=== PATIENT | female | born 1975 | race Caucasian/White ===

== ENCOUNTER 2021-02-21 11:08 | Emergency (ER) | payer OTHER ==
[~2021-02-21] VITALS: Ht 175.3 cm; Wt 61.2 kg
[~2021-02-21 11:08] MED LIST: PREDNISONE20 MG PO; PROVENTIL HFA6.7 GM INH; ROBAXIN-750750 MG PO; ZITHROMAX250 MG PO
--- OUTSIDE RECORDS SUMMARY | 2021-02-21 11:20 | XMS ---
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 Fadumo VISIT COUNT (12 MO.) 1 LISA Goins TOTAL 1 NOTE: Visits indicate total known visits. ED/UCC VISIT TRACKING (12 MO.) 02/21/2021 11:09 [facility] [place] TYPE: Emergency COMPLAINT: - BLOOD IN URINE INPATIENT VISIT TRACKING (12 MO.) No inpatient visits to display in this time frame [id number]
[2021-02-21] MEDS ORDERED: MELOXICAM7.5 MG PO (15:09)
[2021-02-21] MEDS ORDERED: CIPRO500 MG PO (15:09)
== END 2021-02-21 15:22 | disposition home or self-care (01) ==
LOC: ED 11:08
DX: N39.0 Urinary tract infection, site not specified (principal); J44.9 Chronic obstructive pulmonary disease, unspecified; F17.200 Nicotine dependence, unspecified, uncomplicated; Z88.0 Allergy status to penicillin
CPT/HCPCS: 74176; 80053; 81001; 85025; 96365; 99284-25; J0744; J1885; J7030

== ENCOUNTER 2022-05-02 17:22 | Inpatient (IN) | payer OTHER ==
[~2022-05-02] VITALS: Ht 165.1 cm; Wt 52.0 kg
[~2022-05-02 17:22] MED LIST changes: +CIPRO500 MG PO; +MELOXICAM7.5 MG PO
--- OUTSIDE RECORDS SUMMARY | 2022-05-02 17:28 | XMS ---
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 Fadumo VISIT COUNT (12 MO.) Danny Goins TOTAL 1 NOTE: Visits indicate total known visits. ED/UCC VISIT TRACKING (12 MO.) 05/02/2022 17:22 [facility] [place] TYPE: Emergency COMPLAINT: - DIFFUCULTY BREATHING INPATIENT VISIT TRACKING (12 MO.) No inpatient visits to display in this time frame [id number]
--- NOTE | 2022-05-02 23:00 | NUR ---
REPORT RECIEVED FROM CASEY GUZMÁN. PATIENT ARRIVED TO UNIT VIA STRETCHER TO ICU. TRANSFERED TO HOSPITAL BED. PATIENT ON PROPOFOL AT 30MCG/KG/MIN, VERSED AT 15MG/HR, AND NS AT 150MLS/HR. LINDA WITH RT TO TRANSFER PATIENT FROM PROTABLE VENT. PATIENTS VS STABLE. PATIENT REACHING BUE UP. SOFT RESTRAINTS IN PLACE FOR SAFETY. SKIN IS WARM AND DRY. BILATERAL KNEE AND RIGHT FOOT ABRASIONS. LUNGS SOUNDS ARE CLEAR TO DIMINISHED IN THE BASES. HR TACHY IN THE LOW 100'S. OG TO LIS. ETT 23@ TEETH. VENT AC/VC. FRAZIER IN PLACE DRAINING CLOUDY URINE.
--- NOTE | 2022-05-03 01:21 | NUR ---
RT AT BEDSIDE FOR TREATMENT. PATIENT RESTING COMFORTABLY IN BED. GRIMACES WITH ORAL CARE. RESPONDS TO PAINFUL STIMULI. GAG REFLUX PRESENT. RESTRAINTS IN PLACE TO BUE; EXTREMITIES WARM, PINK, AND CAP REFILL < 3 SECS. PATIENT REPOSITIONED AND ORAL CARE COMPLETED.
--- NOTE | 2022-05-03 03:17 | NUR ---
PATIENT RESTING IN BED. RESTRAINTS REMAIN IN PLACE. RESPONDS TO STIMULI. PATIENT TURNED AND ORAL CARE COMPLETED.
--- NOTE | 2022-05-03 05:24 | NUR ---
PATIENT REPOSITIONED IN BED. ORAL CARE COMPLETED. LINEN CHANGED. PATIENT RESPONDS TO STIMULI. GRIMACES AND MOVES EXTREMITIES WITH CARES. VS STABLE.
--- NOTE | 2022-05-03 08:26 | NUR ---
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 VERSED REDUCED X 2, OFF AT 0800. PATIENT REMAINS ON PROPOFOL, BUT BEGINNING TO TITRATE DOWN FOR SAT/SBT. PATIENT CURRENTLY BREATHING OVER VENT WITH CURRENT SETTINGS. PATIENT DOES CURRENTLY RESPOND TO VERBAL AND PHYSICAL STIMULI WITH FACIAL GRIMACE AND/OR BODY MOVEMENT, NOT ABLE TO FOLLOW COMMANDS AT THIS TIME. WILL CONTINUE TO REDUCE PROPOFOL IN PREPARATION FOR SAT/SBT.
[2022-05-03] MEDS ORDERED: ADVAIR HFA 230-12 GM INH (08:39)
[2022-05-03] MEDS ORDERED: VENTOLIN HFA18 GM INH (08:40)
[2022-05-03] MEDS ORDERED: FLUOXETINE HCL20 MG PO (08:41)
[2022-05-03] MEDS ORDERED: LISINOPRIL10 MG PO (08:41)
[2022-05-03] MEDS ORDERED: IPRAT-ALBUT 0.5-3 ML INH (08:41)
--- NOTE | 2022-05-03 09:50 | NUR ---
All restraints removed due to extubation.
--- NOTE | 2022-05-03 10:30 | NUR ---
Pateint awake, alert, oriented and following commands. Patient is isistent to talk to her sister and wants to leave AMA. This nurse educated patient on risks of leaving, and patient still declined to stay. Dr. Nunez notified and also spoke to patient. Dr. Nunez educated patient on risks of leaving and again, patient decliend to stay. At this time, patient refused discharge vitals or any further care. All lines removed from patient, including both IVs. Patient was given clothes to wear for discharge. Patient was taken downstair via wheelchair and picked up by friends. Patient left in stable condition at 11:11.
--- NOTE | 2022-05-03 16:51 | EKG ---
[facility] [address] [place] [address] Signed Sinus tachycardia Biatrial enlargement Possible Anterior infarct , age undetermined Abnormal ECG No previous ECGs available Confirmed by WILDER MACHADO MD ([id number]) on 05/03/2022 4:50:58 PM Electronically Signed By: WILDER MACHADO MD 05/03/221650 PATIENT NAME: DOC NOVOA Electrocardiogram DATE OF : 71 PHYSICIAN: WILDER MACHADO MD REPORT #: [id number] REPORT IS CONFIDENTIAL AND NOT TO BE RELEASED WITHOUT AUTHORIZATION
== END 2022-05-03 11:11 | disposition home or self-care (01) | DRG 208 ==
LOC: ED 17:22 → CCU 20:07
PROVIDERS: ADMIT Internal Medicine; ATTEND Internal Medicine
PROC: 0BH17EZ Insertion of Endotracheal Airway into Trachea, Via Natural or Artificial Opening (ICD-10-PCS; principal; 2022-05-02)
PROC: 5A1935Z Respiratory Ventilation, Less than 24 Consecutive Hours (ICD-10-PCS; 2022-05-02)
PROC: 02HV33Z Insertion of Infusion Device into Superior Vena Cava, Percutaneous Approach (ICD-10-PCS; 2022-05-02)
DX: J96.02 Acute respiratory failure with hypercapnia (principal); G92.9 Unspecified toxic encephalopathy; R45.1 Restlessness and agitation; J44.9 Chronic obstructive pulmonary disease, unspecified; F17.210 Nicotine dependence, cigarettes, uncomplicated; R00.0 Tachycardia, unspecified; I51.7 Cardiomegaly; R73.9 Hyperglycemia, unspecified; R74.01 Elevation of levels of liver transaminase levels; D75.839 Thrombocytosis, unspecified; E86.0 Dehydration; F15.129 Other stimulant abuse with intoxication, unspecified; Z20.822 Contact with and (suspected) exposure to COVID-19; Z98.51 Tubal ligation status; Z88.0 Allergy status to penicillin; Z79.899 Other long term (current) drug therapy; Z79.2 Long term (current) use of antibiotics; Z79.51 Long term (current) use of inhaled steroids; Z96.0 Presence of urogenital implants
CPT/HCPCS: 31500; 36415; 36556; 36600; 51702; 71045; 80048; 80053; 81001; 82803; 83036; 85025; 85379; 86704; 86803; 87502; 93005; 93010; 94002; 94003; 94640; 94644; 99285-25; C9113; C9803; G0480; J0456; J1650; J2250; J2704; J2930; J3010; J3475; J3480; J7030; J7060; J7120; U0003

== ENCOUNTER 2024-06-28 15:06 | Emergency (ER) | payer OTHER ==
[~2024-06-28] VITALS: Ht 175.3 cm; Wt 60.0 kg
[~2024-06-28 15:06] MED LIST changes: +ADVAIR HFA 230-12 GM INH; +ALBUTEROL2.5 MG/3 M INH; +BENZONATATE100 MG PO; +BREZTRI AEROS10.7 GM; +CLEOCIN HCL300 MG PO; +FLUOXETINE HCL20 MG PO; +IPRAT-ALBUT 0.5-3 ML INH; +LISINOPRIL10 MG PO; +LORAZEPAM0.5 MG; +PREDNISONE5 MG PO; +SERTRALINE HCL50 MG PO; +VENTOLIN HFA18 GM INH; +XANAX0.5 MG PO; +ZITHROMAX TRI-500 MG PO
--- OUTSIDE RECORDS SUMMARY | 2024-06-28 15:13 | XMS ---
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 - Patient eloped before treatment completed. - Patient with suicidal and/or homicidal ideations eloped. Details: Patient LWBS. Elopement at [facility] 02/18/2023 17:25 - Patient eloped with IV in place. - Patient eloped before treatment completed. - Patient with suicidal and/or homicidal ideations eloped. Details: Patient LWBS
[2024-06-28] MEDS ORDERED: TRELEGY ELLIPT1 EAC1 INH (15:43)
[2024-06-28] MEDS ORDERED: ASPIRIN 81 MG CHEW PO ONE (15:45)
[2024-06-28 15:48] LABS: BASOPHILS 0.6 % (0-2); EOSINOPHILS 0.5 % (0-6); HEMATOCRIT 43.6 % (35.0-50.0); HEMOGLOBIN 14.3 g/dL (12.0-18.0); LYMPHOCYTES 17.2 % (24-44); MCH 24.6 (27-36); MCHC 32.7 g/dl (30-36); MCV 75.1 fl (81-99); MONOCYTES 3.7 % (0-12); PLATELET COUNT 406 K/uL (140-440); RBC 5.81 M/ul (4.3-5.7); RDW 16.5 (10.5-15.0)
[2024-06-28 16:11] LABS: ALBUMIN 4.2 g/dL (3.4-5.0); ALBUMIN/GLOBULIN RATIO 1.11 (1.1-2.4); BILIRUBIN, TOTAL 0.4 ng/dL (0.2-1.0); BUN/CREATININE RATIO 15.51 (6.0-28.6); CALCIUM 9.6 mg/dL (8.5-10.1); CREATININE, SERUM 0.58 mg/dL (0.55-1.02); MAGNESIUM 2.1 mg/dL (1.8-2.4)
[2024-06-28 16:53] LABS: AMPHETAMINES, URINE NEGATIVE (NEGATIVE); BARBITURATES, URINE NEGATIVE (NEGATIVE); BENZODIAZEPINE, URINE NEGATIVE (NEGATIVE); BUPRENORPHINE, URINE NEGATIVE (NEGATIVE); CANNABINOID, URINE NEGATIVE (NEGATIVE); COCAINE, URINE NEGATIVE (NEGATIVE); ECSTASY, URINE NEGATIVE (NEGATIVE); FENTANYL, URINE NEGATIVE (NEGATIVE); METHADONE, URINE NEGATIVE (NEGATIVE); OPIATES, URINE NEGATIVE (NEGATIVE); OXYCODONE, URINE NEGATIVE (NEGATIVE); PHENCYCLIDINE, URINE NEGATIVE (NEGATIVE)
[2024-06-28 22:50] VITALS: BP 164/97
--- NOTE | 2024-06-30 14:40 | EKG ---
[facility] [address] [facility] [place] [address] Signed Undetermined rhythm Possible Anterior infarct (cited on or before 13-NOV-2023) Prolonged QT Abnormal ECG When compared with ECG of 13-NOV-2023 16:45, Current undetermined rhythm precludes rhythm comparison, needs review QT has lengthened Confirmed by Brown Frye MD ([id number]) on 06/30/2024 2:39:51 PM Electronically Signed By: BROWN FRYE DO 06/30/24 1440 PATIENT NAME: DOC NOVOA Electrocardiogram DATE OF : 71 PHYSICIAN: BROWN FRYE DO REPORT #: [id number] REPORT IS CONFIDENTIAL AND NOT TO BE RELEASED WITHOUT AUTHORIZATION
== END 2024-06-28 23:15 | disposition short-term general hospital (02) ==
LOC: ED 15:06
PROVIDERS: Emergency Medicine
DX: I21.4 Non-ST elevation (NSTEMI) myocardial infarction (principal); I49.3 Ventricular premature depolarization; J44.89 Other specified chronic obstructive pulmonary disease; F17.200 Nicotine dependence, unspecified, uncomplicated; Z99.81 Dependence on supplemental oxygen; Z88.0 Allergy status to penicillin
CPT/HCPCS: 36415; 71045; 80053; 80307; 83735; 84443; 84484; 85025; 93005; 93010; 99285-25; A9270

== ENCOUNTER 2024-10-27 12:59 | Emergency (ER) | payer MEDICARE, OTHER ==
[~2024-10-27] VITALS: Ht 175.3 cm; Wt 60.8 kg
[~2024-10-27 12:59] MED LIST changes: +TRELEGY ELLIPT1 EAC1 INH
--- OUTSIDE RECORDS SUMMARY | 2024-10-27 13:08 | XMS ---
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 - Patient eloped before treatment completed. - Patient with suicidal and/or homicidal ideations eloped. Details: Patient LWBS. CRITERIA MET - Group Notification - [facility] - 2 Visits in 30 Days CARE PROVIDERS Lianet Driscoll Manufacturer Agent/Assistant Manager 08/31/2024-[facility] PHONE: [phone] -[facility] Dentist: [facility] PHONE: [phone] -[place]- Dentist: [facility] PHONE: [phone] [place], [facility]/Center: [facility] PHONE: [phone] MADONNA WORLEY Physician Employment Law Attorney Current PHONE: [phone] EWELINA MERRITT Nurse Practitioner: Family Current PHONE: Unknown Molly has no Care Guidelines for this patient. Fadumo VISIT COUNT (12 MO.) Pedro Goins TOTAL 5 NOTE: Visits indicate total known visits. 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 - Other specified chronic obstructive pulmonary disease - Palpitations - Ventricular premature depolarization 11/13/2023 16:40 [facility] [place] TYPE: Emergency COMPLAINT: - CHEST PAIN, HIGH HEART RATE, AMS DIAGNOSES: - Allergy status to other antibiotic agents - Allergy status to penicillin - Anxiety disorder, unspecified - Chest pain, unspecified - Chronic obstructive pulmonary disease, unspecified - Depression, unspecified - 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 Chest pain, unspecified 1. Non-ST elevation (NSTEMI) myocardial infarction 2. Cachexia 3. Body mass index [BMI] 19.9 or less, adult 4. Anxiety disorder, unspecified 5. Emphysema, unspecified 6. Nicotine dependence, cigarettes, uncomplicated 7. Allergy status to other antibiotic agents 8. [facility] (current) use of inhaled steroids 9. Allergy status to other drugs, medicaments and biological substances [id number]
[2024-10-27 13:25] LABS: BASOPHILS 0.7 % (0-2); HEMATOCRIT 39.2 % (35.0-50.0); HEMOGLOBIN 13.1 g/dL (12.0-18.0); MCH 25.9 (27-36); MCHC 33.4 g/dl (30-36); MCV 77.5 fl (81-99); MONOCYTES 8.1 % (0-12); NEUTROPHILS 70.2 % (39-80); PLATELET COUNT 379 K/uL (140-440); RBC 5.05 M/ul (4.3-5.7); RDW 15.6 (10.5-15.0)
[2024-10-27] MEDS ORDERED: AZITHROMYCIN250 MG PO (13:30)
[2024-10-27 13:44] LABS: ALBUMIN 4.2 g/dL (3.4-5.0); ALBUMIN/GLOBULIN RATIO 1.27 (1.1-2.4); ANION GAP 9.5 (7-21); BILIRUBIN, TOTAL 0.4 mg/dL (0.2-1.0); BUN/CREATININE RATIO 21.42 (6.0-28.6); CALCIUM 9.2 mg/dL (8.5-10.1); CREATININE, SERUM 0.56 mg/dL (0.55-1.02); POTASSIUM 3.5 mmol/L (3.5-5.1); PROTEIN, TOTAL 7.5 g/dL (6.4-8.2)
[2024-10-27 14:10] VITALS: BP 146/93
--- NOTE | 2024-10-28 13:00 | EKG ---
[facility] [address] [facility] [place], [place] [address] Signed Sinus rhythm with short [place] Septal infarct (cited on or before 13-NOV-2023) Abnormal ECG When compared with ECG of 28-JUN-2024 15:31, Previous ECG has undetermined rhythm, needs review QT has shortened Confirmed by Elver Frye DO ([id number]) on 10/28/2024 1:00:37 PM Electronically Signed By: ELVER FRYE DO 10/28/24 1300 PATIENT NAME: BRIGHTDOC Stewart Electrocardiogram DATE OF : 71 PHYSICIAN: ELVER FRYE DO REPORT #: [id number] REPORT IS CONFIDENTIAL AND NOT TO BE RELEASED WITHOUT AUTHORIZATION
== END 2024-10-27 14:10 | disposition home or self-care (01) ==
LOC: ED 12:59
PROVIDERS: Emergency Medicine
DX: R07.89 Other chest pain (principal); J44.89 Other specified chronic obstructive pulmonary disease; F41.9 Anxiety disorder, unspecified; F17.200 Nicotine dependence, unspecified, uncomplicated; Z88.0 Allergy status to penicillin; Z88.1 Allergy status to other antibiotic agents; Z79.52 Long term (current) use of systemic steroids; Z79.899 Other long term (current) drug therapy; Z79.51 Long term (current) use of inhaled steroids
CPT/HCPCS: 36415; 71045; 80053; 83735; 84484; 85025; 93005; 93010; 99285-25